=== PATIENT | female | born 1950 | race Caucasian/White ===

== ENCOUNTER 2021-01-30 15:00 | Emergency (ER) | payer OTHER ==
[~2021-01-30] VITALS: Ht 167.6 cm; Wt 93.0 kg
[~2021-01-30 15:00] MED LIST: GABAPENTIN300 MG PO; GLIMEPIRIDE4 MG PO; GLUCOPHAGE1000 MG PO; PREMARIN PO
[2021-01-30] MEDS ORDERED: ASPIRIN 81 MG CHEW TAB PO ONE (15:15)
[2021-01-30] MEDS ORDERED: DILTIAZEM HCL 5 MG/ML 5 ML VIAL IV STA (15:26)
[2021-01-30] MEDS ORDERED: DIGOXIN INJ 0.25 MG/ML 2 ML AMP IV ONE (15:30)
[2021-01-30 15:47] LABS: BASOPHILS % 0.6 % (0.0-1.0); EOSINOPHILS # (AUTO) 0.4 (0.0-0.4); EOSINOPHILS % 6.7 % (0.0-6.0); HEMATOCRIT 35.1 % (34.2-44.1); HEMOGLOBIN 11.2 g/dL (12.0-16.0); LYMPHOCYTES # (AUTO) 1.4 (1.0-3.2); LYMPHOCYTES % 26.6 % (18.0-39.1); MEAN CORPUSCULAR HEMOGLOBIN 27.7 pg (28-32); MEAN CORPUSCULAR HGB CONC 31.9 g/dL (31-35); MEAN CORPUSCULAR VOLUME 86.9 fL (81-99); MONOCYTES # (AUTO) 0.4 (0.2-0.8); MONOCYTES % 7.2 % (4.4-11.3); NEUTROPHILS # (AUTO) 3.1 (2.1-6.9); NEUTROPHILS % 58.3 % (38.7-80.0); PLATELET COUNT 333 x10e3/uL (140-360); RED BLOOD COUNT 4.04 x10e6/uL (3.6-5.1)
[2021-01-30 16:03] LABS: ALBUMIN 3.2 g/dL (3.5-5.0); ALBUMIN/GLOBULIN RATIO 0.9 (0.8-2.0); ANION GAP 14.3 mmol/L (8-16); CALCIUM 8.7 mg/dL (8.4-10.2); CREATININE, SERUM 1.61 mg/dL (0.57-1.11); POTASSIUM 4.3 mmol/L (3.5-5.1)
[2021-01-30 16:10] LABS: CREATINE KINASE MB 0.8 ng/mL (0-5.0)
[2021-01-30] MEDS ORDERED: METOPROLOL TARTRATE INJ 1 MG/ML VIAL IV ONE (16:15)
== END 2021-01-30 16:56 | disposition home or self-care (01) ==
LOC: ER 15:17
DX: I48.20 Chronic atrial fibrillation, unspecified (principal); R00.2 Palpitations; I10 Essential (primary) hypertension; E11.65 Type 2 diabetes mellitus with hyperglycemia; E78.5 Hyperlipidemia, unspecified; J45.909 Unspecified asthma, uncomplicated; Z20.822 Contact with and (suspected) exposure to COVID-19; Z86.73 Personal history of transient ischemic attack (TIA), and cerebral infarction without residual deficits
CPT/HCPCS: 36415; 71045; 80053; 82550; 82553; 83880; 84484; 85025; 93005; 99284; J1160; U0002